=== PATIENT | male | born 1990 | race Caucasian/White ===

== ENCOUNTER 2016-12-14 03:06 | Emergency (ER) | payer SELFPAY ==
[~2016-12-14] VITALS: Ht 167.6 cm; Wt 60.0 kg
[~2016-12-14 03:06] MED LIST: ADDE20 PO; LEXA20TA PO
[2016-12-14 03:11] VITALS: BP 114/72; PULSE 110; RESP 18; TEMP 97.5; O2SAT 92
[2016-12-14] MEDS ORDERED: SODIUM CHLOR 0.9% 1000 ML INJ 1,000 ML IV ONE (03:16)
[2016-12-14 03:18] VITALS: O2SAT 92
--- NOTE | 2016-12-14 03:28 | PD ---
HPI Chief Complaint: OD/ Ingestion Time Seen by Provider: 03:14 Travel History International Travel<30 days: No Contact w/Intl Traveler<30days: No Traveled to known affect area: No History of Present Illness HPI Patient is a 26-year-old male with history of IVDU who presents the emergency department after recreational heroin overdose. Patient states that he uses heroin recreationally. He injected shortly prior to arrival. He was found unresponsive, apneic and slightly cyanotic by EMS. GCS 3. He was given 2 mg Narcan with improvement of GCS 15. On arrival he is drowsy, though responds to verbal stimulation. States that he was using recreationally and denies attempt to self-harm. He denies any other coingestions, alcohol use. Patient slightly tachycardic, but states that he feels well and denies any complaints, nausea, vomiting, etc. PFSH Past Medical History Depression: Yes Cancer: No Diabetes: No Diminished Hearing: No Immunizations Current: Yes Migraines: Yes Seizures: No Thyroid Disease: No PNEUMOCCOCAL Vaccine (Year): 3 Past Surgical History Surgical History: No Previous Surgery Other Surgery: No Social History Alcohol Use: Yes Tobacco Use: Yes (05/12 PPD) Substance Use: No Allergies-Medications (Allergen,Severity, Reaction): Coded Allergies: Sulfa (Verified Adverse Reaction, Severe, "vomiting", 12/14/16) Reported Meds & Prescriptions Reported Meds & Active Scripts Active No Active Prescriptions or Reported Medications Review of Systems ROS Limitations: Poor Historian Except as stated in HPI: all other systems reviewed are Neg Physical Exam Exam Limitations: Poor Historian Narrative GENERAL: Young male in no acute distress SKIN: Focused skin assessment warm, slightly diaphoretic HEAD: Atraumatic. Normocephalic. EYES: Pupils equal and round. 5 mm. No scleral icterus. No injection or drainage. ENT: No nasal bleeding or discharge. Mucous membranes pink and moist. NECK: Supple without nuchal rigidity CARDIOVASCULAR: Tachycardic with heart rate in the 110s, regular rhythm. No murmur appreciated. RESPIRATORY: No accessory muscle use. Clear to auscultation. Breath sounds equal bilaterally. GASTROINTESTINAL: Abdomen soft, non-tender, nondistended. MUSCULOSKELETAL: No obvious deformities. No edema. NEUROLOGICAL: Drowsy, but awakens with verbal stimulation. Oriented 3.. No obvious cranial nerve deficits. Motor grossly within normal limits. Normal speech. PSYCHIATRIC: insight and judgment poor. Denies delusions, hallucinations, suicidal or homicidal ideation Data Data Last Documented VS Vital Signs Date Time Temp Pulse Resp B/P Pulse Ox O2 Delivery O2 Flow Rate FiO2 12/14/16 03:57 117 12/14/16 03:18 92 Room Air 12/14/16 03:11 97.5 18 114/72 Orders Electrocardiogram (12/14/16 03:16) Basic Metabolic Panel (Bmp) (12/14/16 03:16) Complete Blood Count With Diff (12/14/16 03:16) Iv Access Insert/Monitor (12/14/16 03:16) Ecg Monitoring (12/14/16 03:16) Oximetry (12/14/16 03:16) Sodium Chloride 0.9% Flush (Ns Flush) (12/14/16 03:30) Sodium Chlor 0.9% 1000 Ml Inj (Ns 1000 M (12/14/16 03:16) Drug Screen, Random Urine (12/14/16 03:16) Alcohol (Ethanol) (12/14/16 03:16) Salicylates (Aspirin) (12/14/16 03:16) Tylenol (Acetaminophen) (12/14/16 03:16) Electrocardiogram (12/14/16 ) Labs Laboratory Tests Test 12/14/16 03:20 White Blood Count 7.6 TH/MM3 Red Blood Count 4.58 MIL/MM3 Hemoglobin 14.7 GM/DL Hematocrit 44.1 % Mean Corpuscular Volume 96.2 FL Mean Corpuscular Hemoglobin 32.2 PG Mean Corpuscular Hemoglobin 33.4 % Concent Red Cell Distribution Width 13.7 % Platelet Count 212 TH/MM3 Mean Platelet Volume 8.7 FL Neutrophils (%) (Auto) 59.7 % Lymphocytes (%) (Auto) 29.0 % Monocytes (%) (Auto) 8.5 % Eosinophils (%) (Auto) 2.1 % Basophils (%) (Auto) 0.7 % Neutrophils # (Auto) 4.5 TH/MM3 Lymphocytes # (Auto) 2.2 TH/MM3 Monocytes # (Auto) 0.6 TH/MM3 Eosinophils # (Auto) 0.2 TH/MM3 Basophils # (Auto) 0.1 TH/MM3 CBC Comment DIFF FINAL Differential Comment Sodium Level 140 MEQ/L Potassium Level 4.1 MEQ/L Chloride Level 103 MEQ/L Carbon Dioxide Level 22.9 MEQ/L Anion Gap 14 MEQ/L Blood Urea Nitrogen 7 MG/DL Creatinine 1.37 MG/DL Estimat Glomerular Filtration 63 ML/MIN Rate Random Glucose 186 MG/DL Calcium Level 8.0 MG/DL Salicylates Level 2.0 MG/DL Acetaminophen Level LESS THAN 2.0 MCG/ML Ethyl Alcohol Level LESS THAN 3 MG/DL MDM Medical Decision Making Medical Screen Exam Complete: Yes Emergency Medical Condition: Yes Medical Record Reviewed: Yes Differential Diagnosis 26-year-old male here after recreational heroin overdose. Differential includes opioid overdose, coingestions, alcohol intoxication, dehydration Narrative Course Patient placed on monitor, IV established and blood obtained. Given 1 L normal saline bolus. Twelve-lead EKG shows sinus tachycardia rate 110. CBC, BMP, but alcohol level, aspirin, Tylenol level notable only for creatinine 1.37, calcium 8.0. Urine drugs remains pending. After patient has been in the emergency department for approximately 1 hour and 15 minutes he is awake, alert, oriented. Patient wants to leave AGAINST MEDICAL ADVICE, not when he does stay for his 3 hour observation. Risks and benefits of this were discussed with patient. Ultimately he is able to make decisions for himself, competent at this time. AMA: The risks of leaving against medical advice without further evaluation treatment were discussed with the patient. These risks include cardiac dysfunction, cardiac dysrhythmia, possible heart attack, possible stroke or . The patient indicated understanding of these risks and appeared to have the capacity to make this decision. Diagnosis Primary Impression: Heroin overdose Qualified Code: T40.1X1A - Accidental overdose of heroin, initial encounter Scripts No Active Prescriptions or Reported Meds Disposition: 07 AGAINST MEDICAL ADVICE Condition: Stable Renee Fernández MD Dec 14, 2016 03:28
[2016-12-14] MEDS ORDERED: SODIUM CHLORIDE 0.9% FLUSH 10 ML FLUSH IVF PRN (03:30)
[2016-12-14 03:39] LABS: AUTOMATED NEUTROPHIL # 4.5 TH/MM3 (1.8-7.7); BASOPHIL # 0.1 TH/MM3 (0-0.2); BASOPHIL % 0.7 % (0.0-2.0); EOSINOPHIL # 0.2 TH/MM3 (0-0.4); EOSINOPHIL % 2.1 % (0.0-4.0); HEMATOCRIT 44.1 % (39.0-51.0); HEMO FLAGS DIFF FINAL; LYMPHOCYTE # 2.2 TH/MM3 (1.0-4.8); MEAN CELL VOLUME 96.2 FL (80.0-100.0); MEAN CORPUSCULAR HEMOGLOBIN 32.2 PG (27.0-34.0); MEAN CORPUSCULAR HGB CONC 33.4 % (32.0-36.0); MONO % 8.5 % (0.0-8.0); NEUT % 59.7 % (16.0-70.0); PLATELET COUNT 212 TH/MM3 (150-450); RED BLOOD COUNT 4.58 MIL/MM3 (4.50-5.90); RED CELL DISTRIBUTION WIDTH 13.7 % (11.6-17.2); WHITE BLOOD COUNT 7.6 TH/MM3 (4.0-11.0)
[2016-12-14 03:57] VITALS: PULSE 117
[2016-12-14 04:04] LABS: ACETAMINOPHEN LESS THAN 2.0 MCG/ML (10.0-30.0); ANION GAP 14 MEQ/L (5-15); BICARBONATE 22.9 MEQ/L (21.0-32.0); BLOOD UREA NITROGEN 7 MG/DL (7-18); CHLORIDE 103 MEQ/L (98-107); GLOMERULAR FILTRATION RATE 63 ML/MIN (>89); POTASSIUM 4.1 MEQ/L (3.5-5.1); SODIUM (NA) 140 MEQ/L (136-145)
[2016-12-14 04:05] LABS: ALCOHOL LESS THAN 3 MG/DL (0-5)
--- NOTE | 2016-12-14 17:23 | EKG ---
Date Performed: 12/14/2016 Time Performed: 03:26:37 PTAGE: 26 years EKG: SINUS TACHYCARDIA SEPTAL MYOCARDIAL INFARCTION ABNORMAL ECG Since PREVIOUS TRACING , no significant change noted PREVIOUS TRACIN12/15/2010 03.33 DOCTOR: Torrey Mckeon Interpretating Date/Time 12/14/2016 17:21:35
--- NOTE | 2016-12-14 17:23 | EKG ---
Date Performed: 12/14/2016 Time Performed: 03:48:52 PTAGE: 26 years EKG: SINUS TACHYCARDIA ABNORMAL RHYTHM ECG Since PREVIOUS TRACING , no significant change noted PREVIOUS TRACIN12/15/2010 03.33 DOCTOR: Torrey Mckeon Interpretating Date/Time 12/14/2016 17:21:49
== END 2016-12-14 04:00 | disposition left against medical advice (07) ==
LOC: NEPE 03:06
DX: T40.1X1A Poisoning by heroin, accidental (unintentional), initial encounter (principal)
CPT/HCPCS: 80048; 80307; 85025; 93005; 99284; J7030

== ENCOUNTER 2017-07-01 15:43 | Emergency (ER) | payer SELFPAY ==
[~2017-07-01] VITALS: Ht 175.3 cm; Wt 58.9 kg
[2017-07-01 15:46] VITALS: BP 141/77; PULSE 98; RESP 18; TEMP 98.7; O2SAT 99
[2017-07-01] MEDS ORDERED: SODIUM CHLORIDE 0.9% FLUSH 10 ML FLUSH IV FLUSH PRN (17:15)
--- NOTE | 2017-07-01 17:16 | PD ---
HPI Chief Complaint: Complaint Time Seen by Provider: 16:59 Travel History International Travel<30 days: No Contact w/Intl Traveler<30days: No Traveled to known affect area: No History of Present Illness HPI 27 years old male complains of dysuria, frequency, bilateral flank pain, no abdominal pain, groin pain. Patient states the symptoms started 5 days ago. Patient states that the pain is pressure pain aching pain localized to bilateral flank area, low abdominal area groin area. Patient denies any pain radiation. Patient denies any nausea vomiting diarrhea. Patient denies any recent injury. Patient has history of substance abuse in the past. Patient denies any illicit drug abuse recently. Patient denies any fever chills. PFSH Past Medical History Medical History: Denies Significant Hx Depression: Yes Cancer: No Diabetes: No Diminished Hearing: No Psychiatric: Yes (SAW ABOUT ONE YR AGO. PUT ON MED, NAME NOT KNOWN. DIDN'T WORK) Immunizations Current: Yes Migraines: Yes Seizures: No Thyroid Disease: No Tetanus Vaccination: Unknown Influenza Vaccination: No PNEUMOCCOCAL Vaccine (Year): 3 Past Surgical History Surgical History: No Previous Surgery Other Surgery: No Social History Alcohol Use: Yes Tobacco Use: Yes (05/12 PPD) Substance Use: No Allergies-Medications (Allergen,Severity, Reaction): Coded Allergies: Sulfa (Sulfonamide Antibiotics) (Unverified Adverse Reaction, Severe, "vomiting", 07/01/17) Reported Meds & Prescriptions Reported Meds & Active Scripts Active No Active Prescriptions or Reported Medications Review of Systems General / Constitutional: No: Fever Eyes: No: Visual changes HENT: No: Headaches Cardiovascular: No: Chest Pain or Discomfort Respiratory: No: Shortness of Breath Gastrointestinal: Positive: Abdominal Pain Genitourinary: Positive: Frequency, Dysuria Musculoskeletal: No: Pain Skin: No Rash Neurologic: No: Weakness Psychiatric: No: Depression Endocrine: No: Polydipsia Hematologic/Lymphatic: No: Easy Bruising Physical Exam Narrative GENERAL: Well-nourished, well-developed patient. SKIN: Focused skin assessment warm/dry. HEAD: Normocephalic. EYES: No scleral icterus. No injection or drainage. NECK: Supple, trachea midline. No JVD or lymphadenopathy. CARDIOVASCULAR: Regular rate and rhythm without murmurs, gallops, or rubs. RESPIRATORY: Breath sounds equal bilaterally. No accessory muscle use. GASTROINTESTINAL: Abdomen soft, nondistended. Patient has mild tenderness palpation lower abdomen suprapubic area. No rebound tenderness. No mass. MUSCULOSKELETAL: No cyanosis, or edema. BACK: Nontender without obvious deformity. No CVA tenderness. exam: Patient has mild tenderness on palpation bilateral testicle area. No swelling no edema noted. No urethral discharge. No penile lesion noted. Data Data Last Documented VS Vital Signs Date Time Temp Pulse Resp B/P (MAP) Pulse Ox O2 Delivery O2 Flow Rate FiO2 07/01/17 17:57 20 07/01/17 15:46 98.7 98 141/77 (98) 99 Orders Orders Complete Blood Count With Diff (07/01/17 17:09) Comprehensive Metabolic Panel (07/01/17 17:09) Urinalysis - C+S If Indicated (07/01/17 17:09) Ct Abd/Pel W/O Iv Contrast (07/01/17 17:09) Iv Access Insert/Monitor (07/01/17 17:09) Ecg Monitoring (07/01/17 17:09) Oximetry (07/01/17 17:09) Sodium Chloride 0.9% Flush (Ns Flush) (07/01/17 17:15) Labs Laboratory Tests Test 07/01/17 17:30 07/01/17 17:50 Urine Color YELLOW Urine Turbidity SLIGHT Urine pH 7.0 Urine Specific [place] 1.025 Urine Protein TRACE mg/dL Urine Glucose (UA) NEG mg/dL Urine Ketones 15 mg/dL Urine Occult Blood NEG Urine Nitrite NEG Urine Bilirubin NEG Urine Leukocyte Esterase NEG Urine WBC 0-2 /hpf Urine Squamous Epithelial Cells 0-5 /hpf Urine Amorphous Sediment FEW Microscopic Urinalysis Comment CULT NOT INDICATED White Blood Count 6.1 TH/MM3 Red Blood Count 4.53 MIL/MM3 Hemoglobin 14.2 GM/DL Hematocrit 41.8 % Mean Corpuscular Volume 92.1 FL Mean Corpuscular Hemoglobin 31.4 PG Mean Corpuscular Hemoglobin Concent 34.1 % Red Cell Distribution Width 13.5 % Platelet Count 229 TH/MM3 Mean Platelet Volume 7.9 FL Neutrophils (%) (Auto) 63.6 % Lymphocytes (%) (Auto) 25.0 % Monocytes (%) (Auto) 9.8 % Eosinophils (%) (Auto) 0.7 % Basophils (%) (Auto) 0.9 % Neutrophils # (Auto) 3.9 TH/MM3 Lymphocytes # (Auto) 1.5 TH/MM3 Monocytes # (Auto) 0.6 TH/MM3 Eosinophils # (Auto) 0.0 TH/MM3 Basophils # (Auto) 0.1 TH/MM3 CBC Comment DIFF FINAL Differential Comment Blood Urea Nitrogen 11 MG/DL Creatinine 0.88 MG/DL Random Glucose 81 MG/DL Total Protein 7.8 GM/DL Albumin 4.5 GM/DL Calcium Level 9.0 MG/DL Alkaline Phosphatase 87 U/L Aspartate Amino Transf (AST/SGOT) 79 U/L Alanine Aminotransferase (ALT/SGPT) 168 U/L Total Bilirubin 0.7 MG/DL Sodium Level 135 MEQ/L Potassium Level 3.6 MEQ/L Chloride Level 101 MEQ/L Carbon Dioxide Level 28.0 MEQ/L Anion Gap 6 MEQ/L Estimat Glomerular Filtration Rate 105 ML/MIN MDM Medical Decision Making Medical Screen Exam Complete: Yes Emergency Medical Condition: Yes Interpretation(s) Last Impressions Abdomen/Pelvis CT 07/01/17 1709 Signed Impressions: Service Date/Time: Saturday, July 01, 2017 17:33 - CONCLUSION: No evidence of nephrolithiasis or hydronephrosis. Gregorio Mireles MD 1832 PM. CBC within normal limit. CMP within normal limit. AST 79. ALT 168. UA negative. Differential Diagnosis Differential diagnosis including urethritis, UTI, pyelonephritis, nephrolithiasis, colitis, appendicitis, prostatitis and epididymitis, orchitis. Narrative Course 37 years old male with dysuria , frequency low abdominal pain bilateral flank pain pelvic pain. Cipro 500 mg by mouth given. Diagnosis Primary Impression: Prostatitis Qualified Codes: N41.0 - Acute prostatitis Patient Instructions: General Instructions Additional Instructions: Cipro as directed. Ibuprofen for pain. Follow-up with personal physician. Return if worse. Med/Other Pt SpecificInfo: Prescription(s) given Scripts Ciprofloxacin (Cipro) 500 Mg Tab 500 MG PO BID for Infection, #42 TAB 0 Refills Prov: Ramirez Hough MD 07/01/17 Disposition: 01 DISCHARGE HOME Condition: Stable Ramirez Hough MD Jul 01, 2017 17:16
[2017-07-01 17:38] LABS: BILIRUBIN, URINE NEG (NEG); BLOOD, URINE NEG (NEG); GLUCOSE,URINE NEG (NEG); KETONE, URINE 15 mg/dL (NEG); NITRITE,URINE NEG (NEG); URINE LEUKOCYTE ESTERASE NEG (NEG)
[2017-07-01 17:44] LABS: URINE COLOR YELLOW (YELLW/STRAW); WBC, URINE 0-2 /hpf (0-5)
[2017-07-01 17:45] LABS: AMORPHOUS SEDIMENT, URINE FEW; SQUAMOUS EPITHELIAL CELL URINE 0-5 /hpf (0-5)
--- NOTE | 2017-07-01 18:02 | RADRPT ---
EXAM DATE/TIME: 07/01/2017 17:33 [facility] COMPARISON: No previous studies available for comparison. INDICATIONS : Bilateral flank pain with dysuria. ORAL CONTRAST: No oral contrast ingested. RADIATION DOSE: 6.00 CTDIvol (mGy) MEDICAL HISTORY : None SURGICAL HISTORY : None. ENCOUNTER: Initial ACUITY: 4 - 6 days PAIN SCALE: 5/10 LOCATION: Bilateral flank TECHNIQUE: Volumetric scanning of the abdomen and pelvis was performed. Using automated exposure control and ad justment of the mA and/or kV according to patient size, radiation dose was kept as low as reasonably achievable to obtain optimal diagnostic quality images. DICOM format image data is available electro nically for review and comparison. FINDINGS: LOWER LUNGS: The visualized lower lungs are clear. LIVER: Visualized portions are grossly unremarkable. SPLEEN: Visualized portions are grossly unremarkable. PANCREAS: Within normal limits. KIDNEYS: Normal in size and shape. There is no mass, stone, or hydronephrosis. ADRENAL GLANDS: Within normal limits. VASCULAR: There is no aortic aneurysm. BOWEL/MESENTERY: The stomach, small bowel, and colon demonstrate no acute abnormality. There is no free intraperitone al air or fluid. ABDOMINAL WALL: Within normal limits. RETROPERITONEUM: There is no lymphadenopathy. BLADDER: No wall thickening or mass. REPRODUCTIVE: Within normal limits. INGUINAL: There is no lymphadenopathy or hernia. MUSCULOSKELETAL: Within normal limits for patient age. CONCLUSION: No evidence of nephrolithiasis or hydronephrosis. Gregorio Mireles MD on July 01, 2017 at 17:58 Board Certified Radiologist. This report was verified electronically.
[2017-07-01 18:05] LABS: AUTOMATED NEUTROPHIL # 3.9 TH/MM3 (1.8-7.7); BASOPHIL # 0.1 TH/MM3 (0-0.2); BASOPHIL % 0.9 % (0.0-2.0); EOSINOPHIL % 0.7 % (0.0-4.0); HEMATOCRIT 41.8 % (39.0-51.0); HEMOGLOBIN 14.2 GM/DL (13.0-17.0); LYMPHOCYTE # 1.5 TH/MM3 (1.0-4.8); MEAN CELL VOLUME 92.1 FL (80.0-100.0); MEAN CORPUSCULAR HEMOGLOBIN 31.4 PG (27.0-34.0); MEAN CORPUSCULAR HGB CONC 34.1 % (32.0-36.0); MEAN PLATELET VOLUME 7.9 FL (7.0-11.0); MONO % 9.8 % (0.0-8.0); MONOCYTE # 0.6 TH/MM3 (0-0.9); NEUT % 63.6 % (16.0-70.0); PLATELET COUNT 229 TH/MM3 (150-450); RED BLOOD COUNT 4.53 MIL/MM3 (4.50-5.90); RED CELL DISTRIBUTION WIDTH 13.5 % (11.6-17.2); WHITE BLOOD COUNT 6.1 TH/MM3 (4.0-11.0)
[2017-07-01 18:19] LABS: CHLORIDE 101 MEQ/L (98-107); SODIUM (NA) 135 MEQ/L (136-145)
[2017-07-01 18:24] LABS: ALBUMIN 4.5 GM/DL (3.4-5.0); BLOOD UREA NITROGEN 11 MG/DL (7-18); GLUCOSE,RANDOM 81 MG/DL (74-106)
[2017-07-01 18:27] LABS: ALT (GPT) 168 U/L (12-78); AST (GOT) 79 U/L (15-37); CREATININE 0.88 MG/DL (0.60-1.30); GLOMERULAR FILTRATION RATE 105 ML/MIN (>89)
[2017-07-01 18:28] LABS: TOTAL BILIRUBIN ADULT 0.7 MG/DL (0.2-1.0); TOTAL PROTEIN 7.8 GM/DL (6.4-8.2)
[2017-07-01 18:30] LABS: ALKALINE PHOSPHATASE 87 U/L (45-117)
[2017-07-01] MEDS ORDERED: CIPR-9 PO (18:35)
[2017-07-01] MEDS ORDERED: CIPROFLOXACIN 500 MG TAB PO ONE (18:45)
== END 2017-07-01 19:01 | disposition home or self-care (01) ==
LOC: PHED 15:43
DX: N41.0 Acute prostatitis (principal); F32.9 Major depressive disorder, single episode, unspecified; F17.210 Nicotine dependence, cigarettes, uncomplicated; Z88.2 Allergy status to sulfonamides
CPT/HCPCS: 74176; 80053; 81001; 85025; 99284